=== PATIENT | male | born 1930 | race Caucasian/White ===

== ENCOUNTER → 2017-01-11 | Outpatient (CLI) | payer BC ==
[~2017-01-11] MED LIST: ADVIN50/60 INH; ALBINS/ INH; ASCAUNK PO; ASPEC81 PO; CHOL100027 PO; FINA5TAB PO; FISHOIL PO; HYDR12.55 PO; LISI40TA PO; MULTTAB58 PO; SNG10 PO
[2017-01-11 09:41] LABS: BASO % 0.4 %; BASO ABS # 0.03 K/uL (0-0.2); EOS % 11.3 %; HEMATOCRIT 44.6 % (42-52); IG% 0.3 %; LYMPH % 26.2 %; LYMPH ABS # 2.02 K/uL (1.2-3.4); MEAN CELL VOLUME 96.5 fL (80-100); MEAN CORPUSCULAR HEMOGLOBIN 31.2 pg (25-34); MEAN CORPUSCULAR HGB CONC 32.3 g/dl (32-36); MEAN PLATELET VOLUME 9.9 fL (7.4-10.4); MONO % 5.3 %; NEUT % 56.5 %; PLATELET COUNT 245 K/uL (130-400); RED BLOOD COUNT 4.62 M/uL (4.7-6.1); WHITE BLOOD COUNT 7.71 K/uL (4.8-10.8)
[2017-01-11 10:07] LABS: COMPLETE YES
[2017-01-11 10:12] LABS: ALT/SGPT 20 U/L (12-78); AST/SGOT 16 U/L (15-37); BLOOD UREA NITROGEN 20 mg/dl (7-18); BUN/CREATININE RATIO 15.1 (10-20); CALCIUM 8.9 mg/dl (8.5-10.1); CARBON DIOXIDE 32 mmol/L (21-32); CHLORIDE 106 mmol/L (98-107); CHOLESTEROL 173 mg/dl (0-200); GLUCOSE 89 mg/dl (70-99); POTASSIUM 4.4 mmol/L (3.5-5.1); SODIUM 139 mmol/L (136-145)
[2017-01-11 10:24] LABS: ALB/GLOB RATIO 0.9 (0.9-2); ALKALINE PHOSPHATASE 74 U/L (45-117); CHOLESTEROL/HDL RATIO 5.2; HDL CHOLESTEROL 33 mg/dl; LDL CHOLESTEROL CALCULATED 119 mg/dl; TRIGLYCERIDES 103 mg/dl (0-150); VERY LOW DENSITY LIPOPROT CALC 21 mg/dl
--- NOTE | 2017-01-18 13:55 | CODING QUERY MEDICAL NECESSITY ---
CQSUPPORTING DIAGNOSIS NEEDED A supporting diagnosis is required for the test/procedure performed on this patient in order for us to be reimbursed by the patient's insurance. Please provide a supporting diagnosis for the following test/procedure listed below next to the test name along with your signature. *If there is no additional diagnosis for this patient that would support the following test/procedure please document that below next to the test/procedure. Test(s)/Procedure(s) that require a supporting diagnosis: DOS 01/11/17 BLOOD COUNTS THYROID TEST LIPID TEST Provider Signature: Date: Thank you Nessa Frazier Health Information Management Once completed, please kindly fax back to [phone] For questions please call [phone]
== END | disposition home or self-care (01) ==
LOC: C.LAB 08:22
PROVIDERS: ATTEND Internal Medicine
DX: N40.1 Benign prostatic hyperplasia with lower urinary tract symptoms (principal); I10 Essential (primary) hypertension; E78.5 Hyperlipidemia, unspecified; F99 Mental disorder, not otherwise specified

== ENCOUNTER → 2017-01-18 | Day surgery (SDC) | payer BC ==
[2017-01-03 15:12] VITALS: Ht 176.5 cm; Wt 82.7 kg
[~2017-01-18] VITALS: Ht 176.5 cm; Wt 82.7 kg
[~2017-01-18] MED LIST changes: +LIDOCAINE HCL 2% 2 ML VIAL (20MG/ML) ONE; +PROPOFOL IV EMULSION 10 MG/ML 20 ML VIAL IV ONE
[2017-01-18 12:46] VITALS: TEMP 36.4
--- NOTE | 2017-01-18 12:53 | Endo History and Physical ---
History & Physical Date of Service: Jan 18, 2017. Chief Complaint: Hx of colon polyps Referring Physician: Sid Mathew History of Present Illness For colonoscopy Past Surgical History Hx Cardiac Surgery: No Hx Internal Defibrillator: No Hx Pacemaker: No Hx Abdominal Surgery: Yes (HERNIA REPAIR) Hx of Implantable Prosthesis: No Hx Post-Op Nausea and Vomiting: No Hx Cancer Surgery: No Hx Thoracic Surgery: No Hx Orthopedic: No Hx Urinary Tract Surgery: No Family History None Social History Smoking Status: Never Smoker Hx Substance Use: No Hx Alcohol Use: No Allergies Coded Allergies: Clarithromycin (Verified Allergy, Unknown, PT DOES NOT REMEMBER REACTION, 01/18/17) Levofloxacin (Verified Allergy, Unknown, PT DOES NOT REMEMBER REACTION, 01/18/17) Current Medications Reported Home Medications Medications Dose Route/Sig Max Daily Dose Days Date Category Hydrochlorothiazide 12.5 Mg Tab 1 Tab PO QAM 01/03/17 Reported Proventil 0.083% 2.5MG/3ML (Albuterol Sulf) 2.5 Mg/3 Ml Nebu 2.5 Mg INH QID PRN 01/03/17 Reported Advair Diskus 500/50 60 Dose (Fluticasone Prop/Salmeterol) 1 Ea Aerp 1 Puff INH BID 01/03/17 Reported Vitamin C Unknown Dose (Ascorbic Acid) Tab 1,000 Mg PO DAILY 12/23/11 Reported Vitamin D 1000 Unit (Cholecalciferol) 1,000 Unit Cap 1,000 Inter.unit PO DAILY 12/23/11 Reported [place]-3 (Fish Oil) Oil 1 Cap PO DAILY 12/23/11 Reported Multivitamin (Multiple Vitamin) 1 Tab Tab 1 Tab PO DAILY 12/23/11 Reported Ecotrin Or Generic * (Aspirin) 81 Mg Ectab 81 Mg PO QPM 01/27/11 Reported Prinivil (Lisinopril) 40 Mg Tab 40 Mg PO QAM 12/07/10 Reported Singulair * (Montelukast Sodium) 10 Mg Tab 10 Mg PO QAM 02/04/06 Reported Proscar (Finasteride) 5 Mg Tab 5 Mg PO QPM 02/04/06 Reported Vital Signs Weight (Kilograms): 82.73 Height (Feet): 5 Height (Inches): 9.5 Date Time Temp Pulse Resp B/P (MAP) Pulse Ox O2 Delivery O2 Flow Rate FiO2 01/18/17 12:46 36.4 79 18 122/77 (92) 96 Room Air Physical Exam General Appearance: WD/WN Respiratory/Chest: Respiratory effort: no dyspnea Cardiovascular: Heart Auscultation: RRR Abdomen: Inspection & Palpation: soft Assessment and Plan Hx of polyps for colonoscopy
--- NOTE | 2017-01-18 13:21 | Discharge Instructions ---
Endoscopy Patient Instructions Date / Procedure(s) Performed Jan 18, 2017. Colonoscopy Allergy Information Coded Allergies: Clarithromycin (Verified Allergy, Unknown, PT DOES NOT REMEMBER REACTION, 01/18/17) Levofloxacin (Verified Allergy, Unknown, PT DOES NOT REMEMBER REACTION, 01/18/17) Discharge Date / Findings Jan 18, 2017. polyp, diverticulosis, hemorrhoids Medication Instructions Stopped Medication(s): Aspirin last taken on 01-16-17 Restart Stopped Medication(s): resume meds Reported Home Medications Medications Dose Route/Sig Max Daily Dose Days Date Category Hydrochlorothiazide 12.5 Mg Tab 1 Tab PO QAM 01/03/17 Reported Proventil 0.083% 2.5MG/3ML (Albuterol Sulf) 2.5 Mg/3 Ml Nebu 2.5 Mg INH QID PRN 01/03/17 Reported Advair Diskus 500/50 60 Dose (Fluticasone Prop/Salmeterol) 1 Ea Aerp 1 Puff INH BID 01/03/17 Reported Vitamin C Unknown Dose (Ascorbic Acid) Tab 1,000 Mg PO DAILY 12/23/11 Reported Vitamin D 1000 Unit (Cholecalciferol) 1,000 Unit Cap 1,000 Inter.unit PO DAILY 12/23/11 Reported [place]-3 (Fish Oil) Oil 1 Cap PO DAILY 12/23/11 Reported Multivitamin (Multiple Vitamin) 1 Tab Tab 1 Tab PO DAILY 12/23/11 Reported Ecotrin Or Generic * (Aspirin) 81 Mg Ectab 81 Mg PO QPM 01/27/11 Reported Prinivil (Lisinopril) 40 Mg Tab 40 Mg PO QAM 12/07/10 Reported Singulair * (Montelukast Sodium) 10 Mg Tab 10 Mg PO QAM 02/04/06 Reported Proscar (Finasteride) 5 Mg Tab 5 Mg PO QPM 02/04/06 Reported Provider Instructions Activity Restrictions - No exercising or heavy lifting for 24 hours. - Do not drink alcohol the day of the procedure. - Do not drive a car or operate machinery until the day after the procedure. - Do not make any important decisions or sign important papers in 24 hours after the procedure. Following Day: - Return to full activity which may include returning to work/school. Diet Start your diet with liquids and light foods (jello, soup, juice, toast). Then eat your usual diet if not nauseated. Treatment For Common After Affects For mild abdominal pain, bloating, or excessive gas: - Rest - Eat lightly - Lie on right side Follow-Up Information Follow-up with Sid Mathew as scheduled Anesthesia Information What You Should Know You have had a procedure that required some medicine to reduce anxiety and discomfort. This treatment is called moderate sedation. After receiving the treatment, you may be sleepy, but you will be able to breathe on your own. The effects of the treatment may last for several hours. Follow these instructions along with Activity/Diet recommendations noted above: * Do NOT do anything where dizziness or clumsiness would be dangerous. * Rest quietly at home today, then you can be up and about tomorrow. * Have a responsible person stay with you the rest of today. * You may have had an I.V. today. If so, you may take the dressing off later today. Recommendations Call your doctor if: * Trouble breathing * Continuous vomiting for more than 24 hours * Temperature above 101 degrees * Severe abdominal pain or bloating * Pain not relieved by pain medicine ordered * There is increased drainage or redness from any incision * A large amount of rectal bleeding greater than 2-3 tablespoons. (If you had a polyp/s removed or have hemorrhoids, a small amount of blood - from the rectum is to be expected.) * You have any unanswered questions or concerns. IN THE EVENT OF A SERIOUS EMERGENCY, GO TO THE NEAREST EMERGENCY ROOM Your discharge instructions were prepared by provider Yousif Meraz. Patient Instructions Signature Page Jayy Berrios Patient (or Guardian) Signature/Date: I have read and understand the instructions given to me by my caregivers. Caregiver/RN/Doctor Signature/Date: The above-named patient and/or guardian has received patient instructions on this date. + Original Patient Signature Page (only) stays with chart. Please make copy for patient.
--- NOTE | 2017-01-18 13:34 | GI REPORT ---
Procedure Date: 01/18/2017 1:01 PM Procedure: Colonoscopy Indications: Personal history of colonic polyps Medicines: Propofol total dose 150 mg IV, Lidocaine 40 mg IV Complications: No immediate complications. Estimated Blood Loss: Estimated blood loss was minimal. Procedure: Pre-Anesthesia Assessment: - Prior to the procedure, a History and Physical was performed, and patient medications, allergies and sensitivities were reviewed. The patient's tolerance of previous anesthesia was reviewed. - The risks and benefits of the procedure and the sedation options and risks were discussed with the patient. All questions were answered and informed consent was obtained. After I obtained informed consent, the scope was passed under direct vision. Throughout the procedure, the patient's blood pressure, pulse, and oxygen saturations were monitored continuously. The scope was introduced through the anus and advanced to the cecum, identified by appendiceal orifice and ileocecal valve. The colonoscopy was performed without difficulty. The patient tolerated the procedure well. The quality of the bowel preparation was excellent. Findings: A 3 mm polyp was found in the transverse colon. The polyp was sessile. The polyp was removed with a cold biopsy forceps. Resection and retrieval were complete. Estimated blood loss was minimal. Multiple diverticula were found in the sigmoid colon and in the ascending colon. Non-bleeding internal hemorrhoids were found during endoscopy. The hemorrhoids were mild. Impression: - One 3 mm polyp in the transverse colon, removed with a cold biopsy forceps. Resected and retrieved. - Diverticulosis in the sigmoid colon and in the ascending colon. - Non-bleeding internal hemorrhoids. Recommendation: - Discharge patient to home (ambulatory). - Continue present medications. - Await pathology results. - Return to primary care physician PRN. Yousif Meraz M.D. Yousif Meraz MD 01/18/2017 1:33:55 PM This report has been signed electronically. Note Initiated On: 01/18/2017 1:01 PM I attest to the content of the Intraoperative Record and orders documented therein, exceptions below
--- NOTE | 2017-01-18 13:49 | Anesthesiology Progress Note ---
Anesthesia Post Op Note Date & Time Jan 18, 2017 at 13:49 Vital Signs Pain Intensity: 0 Vital Signs Past 12 Hours Date Time Temp Pulse Resp B/P (MAP) Pulse Ox O2 Delivery O2 Flow Rate FiO2 01/18/17 13:37 70 18 124/76 (92) 94 Room Air 01/18/17 13:22 67 18 92/59 (70) 96 Room Air 01/18/17 12:46 36.4 79 18 122/77 (92) 96 Room Air Notes Mental Status: alert / awake / arousable, participated in evaluation Pt Amnestic to Procedure: Yes Nausea / Vomiting: adequately controlled Pain: adequately controlled Airway Patency, RR, SpO2: stable & adequate BP & HR: stable & adequate Hydration State: stable & adequate Anesthetic Complications: no major complications apparent
[2017-01-18 13:52] VITALS: BP 131/79; PULSE 66; O2SAT 97
== END | disposition home or self-care (01) ==
LOC: C.GI 12:04
PROVIDERS: ATTEND Internal Medicine Gastroenterology
DX: D12.3 Benign neoplasm of transverse colon (principal); K64.8 Other hemorrhoids; K57.30 Diverticulosis of large intestine without perforation or abscess without bleeding; Z86.010 Personal history of colon polyps; J45.909 Unspecified asthma, uncomplicated; I45.10 Unspecified right bundle-branch block; N18.9 Chronic kidney disease, unspecified; Z79.82 Long term (current) use of aspirin

== ENCOUNTER → 2017-09-14 | Outpatient (CLI) | payer BC ==
[~2017-09-14] MED LIST changes: -LIDOCAINE HCL 2% 2 ML VIAL (20MG/ML) ONE; -PROPOFOL IV EMULSION 10 MG/ML 20 ML VIAL IV ONE
--- NOTE | 2017-09-14 17:00 | DIAGNOSTIC IMAGING REPORT ---
CHEST 2 VIEWS ROUTINE CLINICAL HISTORY: 87 years-old Male presenting with J45.901 R09.02 cough and congestion for a week. TECHNIQUE: PA and lateral views of the chest were obtained. COMPARISON: 05/03/2010. FINDINGS: Atherosclerosis of the aortic arch. Ectasia and tortuosity of the aorta. Cardiac silhouette normal in size. Lungs and pleural spaces clear. Osseous structures normal. Upper abdomen normal. IMPRESSION: 1. No acute cardiopulmonary disease. 2. 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 Electronically signed by: Sid Shirley M.D. 09/14/2017 4:58 PM Dictated Date/Time: 09/14/2017 4:57 PM
[2017-09-14 17:13] LABS: BLOOD UREA NITROGEN 40 mg/dl (7-18); CALCIUM 9.1 mg/dl (8.5-10.1); CARBON DIOXIDE 28 mmol/L (21-32); CREATININE 2.03 mg/dl (0.60-1.40); GLUCOSE 130 mg/dl (70-99); POTASSIUM 4.4 mmol/L (3.5-5.1); SODIUM 137 mmol/L (136-145)
== END | disposition home or self-care (01) ==
LOC: C.RAD 16:21
PROVIDERS: ATTEND Family Medicine
DX: J45.901 Unspecified asthma with (acute) exacerbation (principal); R09.02 Hypoxemia

== ENCOUNTER → 2017-09-15 | Outpatient (CLI) | payer BC ==
[2017-09-15 13:31] LABS: BLOOD UREA NITROGEN 35 mg/dl (7-18); CALCIUM 8.9 mg/dl (8.5-10.1); CARBON DIOXIDE 24 mmol/L (21-32); CREATININE 1.36 mg/dl (0.60-1.40); GLUCOSE 103 mg/dl (70-99); POTASSIUM 4.4 mmol/L (3.5-5.1); SODIUM 137 mmol/L (136-145)
== END | disposition home or self-care (01) ==
LOC: C.LAB 12:48
PROVIDERS: ATTEND Family Medicine
DX: J45.901 Unspecified asthma with (acute) exacerbation (principal); R09.02 Hypoxemia; R01.1 Cardiac murmur, unspecified

== ENCOUNTER → 2017-12-11 | Outpatient (CLI) | payer BC ==
--- NOTE | 2017-12-11 15:45 | DIAGNOSTIC IMAGING REPORT ---
CERVICAL SPINE 2 OR 3 VIEWS HISTORY: 87 years-old Male M54.2 acute neck pain without reported trauma COMPARISON: None available TECHNIQUE: 3 views of the cervical spine FINDINGS: 3 mm retrolisthesis C4 on C5 with 2 mm anterolisthesis C6 on C7, likely degenerative in nature. Moderate multilevel intervertebral disc space narrowing with uncovertebral spurring and at least moderate facet arthropathy. Severe facet arthrosis at C7-T1. Bony fusion of the facets at C2-C3. No acute fracture identified. No prevertebral soft tissue swelling. Imaged lung apices appear clear. Calcification of the aorta. IMPRESSION: 1. No acute fracture identified. 2. Multilevel intervertebral disc space narrowing with facet arthrosis and uncovertebral spurring as detailed above. 3. 3 mm retrolisthesis C4 on C5 and 2 mm anterolisthesis C6 on C7 is likely related to long-standing facet disease. The above report was generated using voice recognition software. It may contain grammatical, syntax or spelling errors. Electronically signed by: Herbert Maguire M.D. 12/11/2017 3:44 PM Dictated Date/Time: 12/11/2017 3:41 PM
== END | disposition home or self-care (01) ==
LOC: C.RAD1850 14:47
PROVIDERS: ATTEND Family Medicine
DX: M54.2 Cervicalgia (principal)

== ENCOUNTER 2020-12-22 06:17 | Observation (INO) ==
[2020-12-22] MEDS ORDERED: LIDOCAINE 1% LOCAL 20 ML VIAL ONE (06:44)
[2020-12-22] MEDS ORDERED: VANCOMYCIN HCL 1000MG/20ML VIAL ONE (06:45)
[2020-12-22] MEDS ORDERED: WATER, STERILE FOR INJ 10 ML VIAL ONE (06:45)
[2020-12-22] MEDS ORDERED: BACITRACIN OINT 0.9 GM PKT ONE (06:45)
[2020-12-22] MEDS ORDERED: MIDAZOLAM HCL 5 MG/ML 1 ML VIAL ONE (07:33)
[2020-12-22] MEDS ORDERED: fentaNYL citrate 100 MCG/2 ML VIAL ONE (07:33)
--- NOTE | 2020-12-22 07:35 | History & Physical Bridge Note ---
Date of Service December 22, 2020 History & Physical Bridge Note I have examined the patient, reviewed the History & Physical and in the interval since the performance of the History & Physical I have noted the following changes of clinical significance: no changes noted.
--- NOTE | 2020-12-22 07:37 | Pre Anesthesia Assessment ---
Date of Service December 22, 2020 Pre Sedation Assessment Vital Signs Temp Pulse Resp BP Pulse Ox 12/22/20 06:45 36.7 C 34 L 16 159/69 H 95 Cardiovascular + regular rate and + bradycardic Respiratory normal respiratory effort, lungs clear to auscultation Pre-Sedation Airway Assessment Smoking Status: Never smoker Hx Sleep Apnea: No Short, Thick Neck: No Thyromental Distance: > or= 3.5 Finger Breadths Oral Cavity: + WNL Mallampati Class: III ASA: ASA3 NPO Status Date of Last Intake of Fluids: 12/22/20 Time of Last Intake of Fluids: 05:00 Last Oral Intake of Fluids Comment: sips with pills Date of Last Intake of Solid Food: 12/21/20 Time of Last Intake of Solid Foods: 20:00 Procedure Planning Contraindications for Sedation: none Current Medications Reviewed: Yes Notes The planned sedation has been discussed with the patient. Informed Consent was obtained. I have identified the patient, determined the appropriateness of sedation and have assessed the patient immediately prior to the procedure. All medicine(s) and interventions are by my order.
[2020-12-22] MEDS ORDERED: IBUTILIDE FUMARATE 0.1 MG/ML 10 ML VIAL IV ONE (08:39)
--- NOTE | 2020-12-22 09:11 | Electrophysiology Report ---
Date of Service December 22, 2020 Electrophysiology Procedure Electrophysiology Procedure Report Preoperative diagnosis: High-grade AV block Postoperative diagnosis: Same Procedure: Dual-chamber pacemaker implantation Surgeon: Marcel Zee MD Estimated blood loss: 20 cc Complications: None Disposition: [employer] recovery Procedure details: After obtaining informed consent for the procedure, the patient was brought to the laboratory and prepped and draped in the standard sterile manner. Dye was injected the left arm IV site to opacify the left subclavian vein. The subclavian vein was identified and found to be free of obstruction. The left prepectoral region was anesthetized with 1% lidocaine local anesthetic and left axillary venipuncture was performed by percutaneous technique and a guidewire placed through the left subclavian vein into the superior vena cava. The area was further infiltrated with 1% lidocaine local anesthetic and a 5 cm incision was made parallel to the left clavicle and 2 cm below it and carried down to the anterior pectoralis fascia. A pacemaker pocket was formed by blunt dissection anterior to the pectoralis fascia and a vancomycin-soaked sponge was placed in the pocket. An 8 Tristanian Medtronic lead introducer was placed over the guidewire into the left subclavian vein, the dilator and guidewire were removed and a bipolar active fixation steroid tipped atrial lead was advanced through the introducer into the superior vena cava. A guidewire was placed through the introducer and the introducer was stripped from the lead and guidewire. A 7 Tristanian Medtronic lead introducer was placed over the retained guidewire into the left subclavian vein, the dilator and guidewire were removed and a C315 sheath was advanced into the right atrium over a guidewire. Multiple attempts were made to enter the right ventricle, however due to SVC tortuosity this could not be accomplished. This sheath was therefore removed and an 8 Tristanian Medtronic lead introducer was placed over the guidewire into the left subclavian vein. A Medtronic bipolar active fixation steroid tipped lead was advanced through the introducer into the right atrium. The sheath was stripped away from the lead. The ventricular lead was advanced into the ventricle and a distal septal position. The screw was extended fixing the lead in position. Pacing and sensing thresholds were evaluated in bipolar configuration and are recorded on the implant data sheet. Diaphragmatic pacing was evaluated full output as noted on the implant data sheet. Using a curved stylette the atrial lead was positioned in the region of the atrial appendage and the screw extended fixing the lead in position. Pacing and sensing thresholds were evaluated in bipolar configuration and are recorded on the implant data sheet. Diaphragmatic pacing was evaluated full output and is noted on the implant data sheet. Once the leads were in position they were attached to the anterior pectoralis fascia using 2 sutures of 2-0 silk around each lead collar. The vancomycin soaked sponge was removed from the pocket, hemostasis was obtained, the pacemaker was attached to the leads and placed in the pocket with the leads coiled beneath it. The incision was closed with a running double subcutaneous closure of 3-0 Vicryl absorbable suture, followed by running subcuticular skin closure of 4-0 Vicryl absorbable suture. Bacitracin ointment was placed on the incision and a dressing applied. [facility] Electrophysiology codes Indication for Procedure (1) High-grade atrioventricular block: Pacing Procedure 1: Pacin Insert/Replace Pacer A & V PG Moderate Sedation Codes Moderate Sedation Codes Procedure 1: Sedation/Anesthesia: 15961 Mod Sedation by the same physician;Init15 Min Child Age 5 & Up Procedure 2: Sedation/Anesthesia: 96211 Mod Sedation by the same physician; Ea [id number] Minutes
[2020-12-22] MEDS ORDERED: ACETAMINOPHEN W/CODEINE #3 1 TAB PO PRN (09:57)
[2020-12-22] MEDS ORDERED: ACETAMINOPHEN 325 MG TAB PO PRN (09:57)
--- NOTE | 2020-12-22 10:00 | Post Anesthesia Assessment ---
Date of Service December 22, 2020 Post Sedation Assessment Vital Signs Temp Pulse Resp BP Pulse Ox 12/22/20 09:45 60 20 132/77 95 12/22/20 09:30 61 20 151/88 H 95 12/22/20 09:15 60 20 156/89 H 95 12/22/20 06:45 36.7 C 34 L 16 159/69 H 95 Recovery Score Activity: Moves 4 extremities Respiration: Deep Breath/Cough Circulation: +/-20% PreAnes Value Consciousness: Fully Awake Oxygen Saturation: > 92% On Room Air Post Anesthesia Score: 10 Discharge Sedation Level of Care: Fast Track Phase II Post Sedation Plan On clinical assessment, the patient appears to have tolerated the sedation without complications. Patient is recovering as anticipated. Patient will continue to be monitored by nursing and may be discharged when sedation discharge criteria are met per below protocol. Upon Completions of procedure up to 15 minutes continue every 5 minute vital signs and the P.A.R. score; then discharge to a Phase I or Fast Track to Phase II per the following guidelines: * Discharge Patient to appropriate Phase II area if PAR is 8 or greater or return to pre- procedure baseline. The post - procedure orders will be as directed. * If PAR score is less than 8 or not return to pre-procedure baseline then patient will follow Phase I monitoring till PAR is reached for Phase II. The Phase I may be done in procedure room or may call to secure a Phase I area. * If naloxone or flumazenil are used for reversal, hold in Phase I for continued monitoring from when last reversal dose was given for a minimum of 60 minutes or longer pending the nurse and/or physician discretion of patient condition before discharge to Phase II. Please call the Sedation Physician to re-evaluate and complete post-note for discharge to Phase II area. Do NOT discharge from procedure sedation or Phase 1 until post- sedation evaluation note is complete by procedure /sedation MD Sedation Discharge Instructions to be given to the patient at discharge to home.
[2020-12-22] MEDS ORDERED: ACETAMINOPHEN 325 MG TAB ONE (13:26)
[2020-12-22] MEDS ORDERED: hydroCHLOROthiazide 25 MG TAB PO SCH (21:00)
[2020-12-22] MEDS ORDERED: amLODIPine BESYLATE 5 MG TAB PO SCH (21:00)
[2020-12-22] MEDS ORDERED: FINASTERIDE 5 MG TAB PO SCH (21:00)
[2020-12-22] MEDS ORDERED: CEROVITE ADV FORMULA TAB PO SCH (21:00)
[2020-12-22] MEDS ORDERED: ATORVASTATIN 20 MG TAB PO SCH (21:00)
[2020-12-23] MEDS ORDERED: ONDANSETRON INJ 2 MG/ML 2 ML VIAL IV ONE (07:49)
[2020-12-23] MEDS ORDERED: MONTELUKAST SODIUM 10 MG TABLET PO SCH (09:00)
[2020-12-23] MEDS ORDERED: lisinopril 20 MG TAB PO SCH (09:00)
[2020-12-23] MEDS ORDERED: FLUTICASONE/VILANTEROL 200/25MCG 14 PUFFS/INHALER INH SCH (09:00)
[2020-12-23] MEDS ORDERED: MULTIVITAMIN TAB PO SCH (09:00)
[2020-12-23] MEDS ORDERED: CYANOCOBALAMIN 500 MCG TABLET (VITAMIN B-12) PO SCH (09:00)
--- NOTE | 2020-12-23 09:08 | Cardiology Progress Note ---
Date of Service December 23, 2020 Assessment & Plan (1) Status post placement of cardiac pacemaker: Plan: He is doing well postop day #1. The device is working well, he feels good this morning with some nausea this morning. I do not want to keep him for that, I am going to arrange discharge. We will follow him up on Saturday. Radiology Admission and Anticipated Discharge Date Admission Date: December 22, 2020 Subjective He is feeling well now, he had some nausea and vomited after breakfast but that has resolved. He is not sure why that happened. He has no chest discomfort, no lightheadedness or dizziness. Physical Exam Physical Exam: The incision is clean and dry, no swelling, expected ecchymosis is present. Dressing changed. Cardiac rhythm is regular with no rub Lungs are clear Results & Data ([facility]) Vital Signs (Past 12 Hours) Vital Signs Temp Pulse Resp BP Pulse Ox 12/23/20 07:32 36.4 C L 70 18 132/89 94 12/23/20 04:48 36.5 C 61 20 144/97 H 95 12/23/20 00:16 36.6 C 64 16 121/79 96 Diagnostic Findings Postop ECG: Sinus rhythm sensing and ventricular pacing appropriately Telemetry: Normal dual-chamber operation with ventricular pacing around Pacemaker evaluation: Excellent pacing and sensing characteristics Chest x-ray: Good lead position, no pneumothorax by my evaluation, formal report pending PG Care Time/CCT Total # of Minutes Spent Total Time Spent with Patient: Total time spent is greater than 50% in coordination of care (as documented) at patient's floor/unit and/or counseling patient: Coding Level of Care Code None Diagnoses Status post placement of cardiac pacemaker Z95.0 CPT Codes Dual Lead Pacemaker System - 08958 ([id number])
--- NOTE | 2020-12-23 09:32 | XRay Report ---
TWO VIEW CHEST CLINICAL HISTORY: Pacemaker implantation. FINDINGS: PA and lateral chest radiographs are compared to study dated 02/17/2019 and 12/26/2011. A 2-l ead cardiac pacemaker partially obscures the left upper chest. Leads project over the right atrial ap pendage and the right ventricle. The heart is enlarged. The pulmonary vasculature is noncongested. Th ere is atherosclerotic calcification with uncoiling and aneurysmal dilatation of the thoracic aorta. This is similar appearance to previous. Chronic interstitial thickening is similar to previous. There are scattered calcified granulomas. No airspace consolidation or large pleural effusion is identifie d. There is no pneumothorax. The skeletal structures are osteopenic. Compression deformities are note d in the lower thoracic spine. IMPRESSION: 1. A 2-lead cardiac pacemaker has been placed as above. No pneumothorax is identified post procedure. 2. Cardiomegaly without radiographic evidence of congestive failure. 3. No airspace consolidation or pleural effusion is identified. 4. 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 This has not appreciably changed radiographically as compared to 02/17/2019. ACT 112: Negative or not required by law. Electronically signed by: Liban Orozco M.D. 12/23/2020 9:31 AM
--- NOTE | 2020-12-23 17:41 | Electrocardiogram Report ---
Test Reason : Blood Pressure : / mmHG Vent. Rate : 071 BPM Atrial Rate : 071 BPM P-R Int : 174 ms QRS Dur : 158 ms QT Int : 458 ms P-R-T Axes : -10 -79 062 degrees QTc Int : 497 ms Atrial-sensed ventricular-paced rhythm Abnormal ECG When compared with ECG of 07-NOV-2012 15:50, Electronic ventricular pacemaker has replaced Sinus rhythm Confirmed by Marcelino Gutierrez ([id number]) on 12/23/2020 5:40:40 PM Referred By: Marcel Zee Confirmed By:Mike Gutierrez
== END 2020-12-23 10:20 | disposition home or self-care (01) ==
LOC: 2E 06:17 → EP 06:17